=== PATIENT | male | born 1955 | race Caucasian/White ===

== ENCOUNTER 2019-06-24 17:08 | Emergency (ER) | payer SELFPAY ==
[~2019-06-24] VITALS: Ht 182.9 cm; Wt 72.6 kg
--- NOTE | 2019-06-24 17:18 | NUR ---
ED Nurse Note: pt came in to ED via w/c accompanied by a friend, noted with a wood piece penetratring the bottom of left sole of his foot. pt stated he was trimming the branches and accidentally steoped on the branch. states pain of 5/10. VSS . pt is alert x4
[2019-06-24] MEDS ORDERED: Lidocaine 1% 10mg/ml/Epi 0.005mg/ml 30ml vial INJ ONE (17:30)
[2019-06-24] MEDS ORDERED: Tetanus/Diptheria/Pertussis IM ONE (17:30)
[2019-06-24] MEDS ORDERED: oxyCODONE HCL/Acetaminophen 5/325mg ORAL ONE (17:30)
--- NOTE | 2019-06-24 17:43 | Emergency Room Report ---
History of Present Illness General Chief Complaint: Lower Extremity Injury Source: Patient Present Illness HPI 64-year-old male presents with splinter to left foot, patient stepped on some branches, it appears to his rubber sole, he endorses sharp pain with movement alleviated with rest, he is mild, no fevers no chills no chest pain no shortness of breath, he does not know when his last Tdap was given. Patient presents for evaluation Allergies: Coded Allergies: CEPHALEXIN (Verified Allergy, Unknown, 06/24/19) Patient History Past Medical History: see triage record Reviewed Nursing Documentation: PMH: Agreed; PSxH: Agreed Nursing Documentation-PMH Past Medical History: No Stated History Review of Systems All Other Systems: negative except mentioned in HPI Physical Exam Vital Signs Date Time Temp Pulse Resp B/P (MAP) Pulse Ox O2 Delivery O2 Flow Rate FiO2 06/24/19 17:12 98.1 64 18 129/72 (91) 96 Room Air Sp02 EP Interpretation: reviewed, normal General Appearance: well appearing, no apparent distress, alert Head: normocephalic, atraumatic Eyes: bilateral eye PERRL, bilateral eye EOMI ENT: uvula midline, moist mucus membranes Neck: supple, supple/symm/no masses Musculoskeletal: other - Left lower extremity: 2+ PT, DP, sensation grossly intact fires EHL, there is a 1 cm wound on the plantar aspect middle part of the foot with an exposed splinter 1 cm defect Neurologic: alert, oriented x3 Psychiatric: mood/affect normal Skin: no rash, warm/dry Procedures Additional Procedure Procedure Narrative Foreign body was removed from the plantar aspect of the left foot, consent was obtained verbally. Lidocaine 1% with epi 5 cc was used. Area was cleaned with Betadine, wound was irrigated after foreign body was removed Medical Decision Making Diagnostic Impression: Primary Impression: Splinter in skin Additional Impression: Foreign body (FB) in soft tissue ER Course Patient with foreign body sole of left foot that appears to rubber, patient was given ciprofloxacin as a prescription to treat for Pseudomonas, Tdap was given, area was cleaned, Betadine was used, disposition home with return precautions patient counseled to follow-up with podiatry. Other X-Ray Diagnostic Results Other X-Ray Diagnostic Results : X-Ray ordered: X-ray left foot complete # of Views/Limited Vs Complete: 3 View Indication: Pain EP Interpretation: Yes Interpretation: other - Defect plantar aspect of left foot Impression: Other - Defect left plantar aspect, no foreign body Electronically Signed by: Buddy Gardner MD Last Vital Signs Date Time Temp Pulse Resp B/P (MAP) Pulse Ox O2 Delivery O2 Flow Rate FiO2 06/24/19 17:12 98.1 64 18 129/72 (91) 96 Room Air Disposition: HOME, SELF-CARE Condition: Stable Scripts Ciprofloxacin Hcl* (CIPROFLOXACIN HCL*) 500 Mg Tablet 500 MG ORAL Q12H, #14 TAB 0 Refills Prov: Buddy Gardner MD 06/24/19 Referrals: [facility]. [facility] Patient Instructions: Sliver Removal, Care After Additional Instructions: The patient was provided with discharge instructions, notified to follow-up with a primary care doctor and or specialist in the next 24-48 hours, and to return to the ED if they have worsening of their symptoms. Please note that this report is being documented using [employer] technology. This can lead to erroneous entry secondary to incorrect interpretation by the dictating instrument. FOLLOW-UP WITH PODIATRY Buddy Gardner MD Jun 24, 2019 17:43
[2019-06-24] MEDS ORDERED: CIPROFLOXACIN500 M2 ORAL (18:22)
[2019-06-24 18:25] VITALS: BP 124/72
--- NOTE | 2019-06-24 18:25 | NUR ---
ER DISCHARGE NOTE: Patient is cleared to be discharged per ERMD, pt is aox4, on room air, with stable vital signs. pt was given dc and prescription instructions, pt was able to verbalize understanding, pt id band removed without complications. pt is able to ambulate with steady gait. pt took all belongings.
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
== END 2019-06-24 18:55 | disposition home or self-care (01) ==
LOC: EMR 17:25
DX: S90.852A Superficial foreign body, left foot, initial encounter (principal); Z23 Encounter for immunization; W22.09XA Striking against other stationary object, initial encounter; Y92.9 Unspecified place or not applicable
CPT/HCPCS: 90471; 90715; 99283